=== PATIENT | female | born 1945 | race Caucasian/White ===

== ENCOUNTER 2017-01-29 05:16 | Emergency (ER) | payer MEDICARE, MEDICAID ==
[~2017-01-29] VITALS: Ht 167.6 cm; Wt 68.0 kg
[2017-01-29] MEDS ORDERED: DIAZEPAM5 MG PO (05:33)
[2017-01-29] MEDS ORDERED: RISPERDAL 0.20.25 MG PO (05:34)
[2017-01-29] MEDS ORDERED: LEXAPRO 20 MG T20 MG PO (05:37)
[2017-01-29] MEDS ORDERED: REMERON15 MG PO (05:37)
--- NOTE | 2017-01-29 05:44 | Emergency Room Report ---
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 PCP REQUESTING FOLLOWUP EXAM/EVAL/DX FOR NOTED LIMP WHEN AMBULATING. PATIENT DOES NOT EXIBIT OUR EXPRESS DISCOMFORT AT THIS TIME. AROUSES EASILY TO VERBAL. 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 N Clinical Suspician of Infection? N Mental Status: 1 - Regular (Normal Baseline) Sepsis Risk:Low Sepsis Risk Have you (or family members/close friends) recently traveled outside the [place]? N If Yes, where/when: Have you had exposure to infectious disease within the past month? N TB? Other? Specify: Source patient, RN notes reviewed, EMS, [place] [facility] records, old records Exam Limitations clinical condition Comment pt has dementia and had no c/o but has hx of fall at [facility] and reported limp lt side with ambulation - no fever or rash and no other issues reported Cardiac Chest Pain Chest pain indicative of cardiac No Timing/Duration this evening Severity moderate ALLERGIES Coded Allergies: No Known Drug Allergies (NKDA) (01/29/17) Home Medications Reported Medications Diazepam (Diazepam 5MG) 5 MG PO TID Risperidone (Risperdal 0.25MG Tab) 0.25 MG PO QHS Escitalopram Oxalate (Lexapro 20MG) 20 MG PO DAILY Mirtazapine (Remeron) 30 MG PO QHS History Medical History General CAD? No Angina: No NV: No Hypertension? No Hyperlipidemia? No CHF? No DVT? No PE? No COPD? No Asthma? No Anemia? No GERD? No Gastric ulcers? No GI Bleed? No Hernia? No Thyroid Problems? No Hypothyroidism? No CVA? No Seizures? No Diabetes? No Renal Insuffiency? No End Stage Renal Disease? No UTI? No Stones? No BPH? No GB Disease: No Nephritic Syndrome? No Asplenia? No Hepatitis? No Sickle Cell Disease? No Arthritis? Yes Migraines? No Cataracts? No Glaucoma? No MRSA? No HIV? No TB? No Anxiety? Yes Depression? Yes Cancer? No Immunization Hx DT/Tetanus 1-4 Years Ago Surgical Hx Previous Surgery?N Social History Smoking Hx Smoker: Never Smoker Tobacco: No Alcohol Alcohol: No Drugs none Review of Systems All Other Systems Reviewed and Negative Constitutional denies fever Eyes denies drainage ENT denies: ear discharge, epistaxis, throat pain. Respiratory denies cough, denies shortness of breath, denies wheezing Cardiovascular denies chest pain, denies palpitations, denies syncope Gastrointestinal denies abdominal pain, denies diarrhea, denies vomiting Genitourinary denies: dysuria, frequency, hesitancy, hematuria. Musculoskeletal see HPI, denies back pain, joint pain, denies joint swelling, denies neck pain Skin denies rash Psychiatric/Neurological denies seizure Physical Exam Vital Signs Vital Signs Date Time Temp Pulse Resp B/P Pulse O2 O2 Flow FiO2 Ox Delivery Rate 01/29 0634 98.0 74 22 114/65 97 01/29 0518 98.0 74 22 153/78 97 - WBC >12,000 or <4,000 or 10% bands? 2 or more SIRS Criteria Met? B/P:153/78 MAP:103 Creatinine >2.0? UA output<0.5ml/kg/hr for 2 hrs? Platelet count >100,000? Lactate >2.0mmol/1? INR >1.2 or PTT > than 60 sec? Evidence of Organ Dysfunction? Provider documented clinical suspician of infection? N Sepsis Criteria Count: 1 Sepsis Risk: Low Sepsis Risk General Appearance no apparent distress Eye Exam - bilateral eye PERRL, bilateral eye EOMI Ear, Nose, Throat normal ENT inspection Neck limited range of motion Respiratory Status No: respiratory distress. Lung Sounds bilateral: lungs clear. 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 No Results/Orders Orders Procedure Date/time Status HIP BILATERAL 2 VIEW MIN EACH 01/29 0520 Active XRAY/CT/US XRAY/CT/US XRAY hip, pelvis XR interpretation by reviewed by me Xray Results no fracture seen Departure Departure Time of Disposition 605 Disposition DC Home or Self Care(routine) Clinical Impression Primary Impression: Contusion of hip, left Qualifiers: Encounter type: initial encounter Qualified Code: S70.02XA - Contusion of left hip, initial encounter Secondary Impressions: Contusion of hip, right Qualifiers: Encounter type: initial encounter Qualified Code: S70.01XA - Contusion of right hip, initial encounter Condition STABLE Referrals Ravi Loyola MD (Family) Patient Instructions DI for Hip Pain, How to Prevent Falls Additional Instructions resume prev care and wt bearing as andre Discharge Counseling Counseled pt/family regarding diagnosis, test results, follow up needs ED Critical Care Critical Care No at 0751
--- NOTE | 2017-01-29 07:06 | RADIOLOGY REPORT PS360 ---
HIP BILATERAL 2 VIEW MIN EACH CLINICAL INDICATION: Pain following injury fall ORDERING PHYSICIAN: Noa Manzo MD PATIENT AGE: 71 years COMPARISON: None FINDINGS: No fracture or dislocation. No lytic or blastic change. Skin fold artifact is present overlying the right femoral head IMPRESSION: No acute finding
[2017-01-29 10:59] VITALS: BP 110/73
== END 2017-01-29 11:01 | disposition home or self-care (01) ==
LOC: ER 05:16
DX: S70.02XA Contusion of left hip, initial encounter (principal); S70.01XA Contusion of right hip, initial encounter; W19.XXXA Unspecified fall, initial encounter; Y92.129 Unspecified place in nursing home as the place of occurrence of the external cause; F03.90 Unspecified dementia, unspecified severity, without behavioral disturbance, psychotic disturbance, mood disturbance, and anxiety; Z79.899 Other long term (current) drug therapy